=== PATIENT | male | born 2000 | race Caucasian/White ===

== ENCOUNTER 2022-02-18 19:02 | Emergency (ER) | payer SELFPAY ==
[2022-02-18 19:33] VITALS: BP 117/65; PULSE 74; RESP 20; TEMP 98.2; BMI 20.8
[2022-02-18 21:39] LABS: PH,URINE 5.5 (5.0-8.0); URINE APPEARANCE CLEAR; URINE BILIRUBIN NEGATIVE (NEGATIVE); URINE COLOR YELLOW; URINE GLUCOSE (UA) NEGATIVE (NEGATIVE); URINE KETONE NEGATIVE (NEGATIVE); URINE LEUK ESTERASE NEGATIVE (NEGATIVE); URINE NITRITE NEGATIVE (NEGATIVE); URINE PROTEIN NEGATIVE (NEGATIVE); URINE UROBILINOGEN 0.2 mg/dL (0.2-1.0)
[2022-02-18 22:42] LABS: SYPHILIS W/ RPR CONF NON-REACTIVE (NONREACTIVE)
[2022-02-18 23:11] LABS: HIV INTERPRETATION NEGATIVE (NEGATIVE)
== END 2022-02-18 21:53 | disposition home or self-care (01) ==
LOC: JER 19:02 → JERFT 19:02
DX: B00.9 Herpesviral infection, unspecified (principal)
CPT/HCPCS: 36415; 81003; 86780; 87389; 87491; 87591; 99282-25